=== PATIENT | female | born 1995 | race Two or more races ===

== ENCOUNTER 2016-10-16 15:54 | Emergency (ER) | payer OTHER ==
[~2016-10-16] VITALS: Ht 162.6 cm; Wt 93.9 kg
[2016-10-16 16:54] VITALS: BP 124/68
[2016-10-16] MEDS ORDERED: ACETAMINOPHEN 500 MG TAB PO ONE (19:15)
== END 2016-10-16 20:01 | disposition home or self-care (01) ==
LOC: ER 15:54
DX: O26.891 Other specified pregnancy related conditions, first trimester (principal); S30.1XXA Contusion of abdominal wall, initial encounter; R51 Headache; Z3A.01 Less than 8 weeks gestation of pregnancy; V49.9XXA Car occupant (driver) (passenger) injured in unspecified traffic accident, initial encounter; Y93.89 Activity, other specified; Y99.8 Other external cause status; Y92.89 Other specified places as the place of occurrence of the external cause
CPT/HCPCS: 36415; 76801; 84702